=== PATIENT | male | born 1955 | race Caucasian/White ===

== ENCOUNTER → 2016-11-20 | Outpatient (CLI) | payer OTHER ==
[~2016-11-20] MED LIST: ANTI-DIARRHEAL2 M1 PO; ASPIRIN PO; ATENOLOL25 MG PO; BENADRYL25 M1 PO; CALCITRIOL0.25 MC1 PO; FOSRENOL500 MG PO; HYDROCODON-ACE1 EAC5 PO; ISOSORBIDE DINI30 MG PO; LIPITOR PO; LOVENOX30 MG/0.3 INJ; PERCOCET 7.5/321 TAB PO; RENVELA800 MG PO; SENSIPAR30 M1 PO
--- NOTE | ~2016-11-20 | CR63 ---
[facility] A Service of [facility] RADIOLOGY TEXT RESULTS PATIENT: AMY OLIVA LOCATION: [facility] : 55 UNIT #: [id number] AGE: [address]: Nate Mirza MD SEX: M ORDER DR: [id number] [facility] [place] [address] [place], [place] [address] [id number] O MR#: [id number] Acc #: [id number] NAME: AMY OLIVA : 1955 SEX: M STUDY DATE/TIME: 11/20/2016 9:01 UNIT: [facility] ROOM: STUDY DESCRIPTION: CR Chest 2 View Attending Physician: Nate Mirza M.D. Ordering Physician: Nate Mirza M.D. Primary Care Physician: Alek Wong MEDICAL IMAGING REPORT This report is preliminary unless electronic signature is present EXAM Chest 11/20/2016 HISTORY 61-year-old male preop clearance for right knee arthroscopy. Lateral meniscal tear. History of hypertension, thyroid disease, kidney dialysis. COMPARISON Chest 07/25/2005. FINDINGS PA and lateral chest views show normal cardiac size and configuration. Hilar structures and mediastinal contours are preserved. Calcification is noted in the aortic arch. Occasional granuloma also noted in the right hilum and right upper lobe. Bilateral nipple opacities visualized. Lungs are otherwise expanded and clear. Costophrenic angles are preserved. IMPRESSION Stable chest with no acute chest finding. Dictated by... Gilberto Jaimes M.D. THIS IS AN ELECTRONICALLY VERIFIED REPORT Gilberto Jaimes M.D. at 11/20/2016 10:43 AM SHUN/wai TD: 11/20/2016 09:49 JOB #: [id number] MEDICAL IMAGING REPORT Page 1 of 1 COPY
[2016-11-20 09:10] LABS: HEMATOCRIT 41.7 % (38.0-50.0); HEMOGLOBIN 13.4 gm/dL (13.0-16.0); MEAN CELL VOLUME 100.4 FL (83-96); MEAN CORPUSCULAR HEMOGLOBIN 32.2 PG (28-34); MEAN CORPUSCULAR HGB CONC 32.1 g/dL (30-36); MEAN PLATELET VOLUME 9.5 FL (6.5-11.5); RED BLOOD COUNT 4.15 X10e (3.90-5.60); RED CELL DISTRIBUTION WIDTH 15.7 % (11.0-15.5); WHITE BLOOD COUNT 8.7 X10e3 (4.0-10.5)
[2016-11-20 10:01] LABS: BUN/CREATININE RATIO 3.5; CALCIUM SERUM 8.7 mg/dL (8.4-10.2); CREATININE SERUM 17.7 mg/dL (0.6-1.4); GLOM FILT RATE Estimated 2.5 mL/min (>60); POTASSIUM 5.1 mmol/L (3.5-5.1)
== END | disposition home or self-care (01) ==
LOC: CAMB 07:05 → EDSTATUS 08:00
PROVIDERS: Orthopaedic Surgery
DX: Z01.818 Encounter for other preprocedural examination (principal); I10 Essential (primary) hypertension; E78.5 Hyperlipidemia, unspecified; E07.9 Disorder of thyroid, unspecified; Z99.2 Dependence on renal dialysis
CPT/HCPCS: 36415; 71020; 80048; 85027

== ENCOUNTER → 2016-12-01 | Day surgery (SDC) | payer OTHER ==
--- NOTE | ~2016-12-01 | EKG ---
PATIENT: AMY OLIVA UNIT #: [id number] Ventricular Rate: 56 BPM Atrial Rate: 56 BPM P-R Interval: 124 ms QRS Duration: 90 ms Q-T Interval: 444 ms QTC Calculation(Bezet): 428 ms P [place]: 67 degrees Calculated R [place]: 72 degrees Calculated T [place]: 68 degrees Diagnosis Line: Sinus bradycardia Diagnosis Line: Otherwise normal ECG Diagnosis Line: When compared with ECG of 10-JAN-2016 08:24, Diagnosis Line: Vent. rate has decreased BY 30 BPM Diagnosis Line: Confirmed by TATO MORGAN MD ([id number]) on Diagnosis Line: 12/01/2016 9:37:24 AM INTERPRETING MD: EDDIE ZAPATA
--- NOTE | ~2016-12-01 | OR ---
Unit #: [id number] #: [id number] Patient: AMY OLIVA [id number] [address] [address] [id number] O MR#: [id number] NAME: AMY OLIVA. ROOM: Date of Procedure: 12/01/2016 Admission Date: 12/01/2016 Surgeon: Nate Mirza M.D. : 1955 Attending Physician: Nate Mirza M.D. Primary Care Physician: Alek Wong OPERATIVE REPORT PREOPERATIVE DIAGNOSIS Lateral meniscal tear, right knee. POSTOPERATIVE DIAGNOSES Lateral meniscal tear, right knee with degenerative arthritis. PROCEDURE PERFORMED Arthroscopic partial lateral meniscectomy. ANESTHESIA General. ESTIMATED BLOOD LOSS Less than 25. DESCRIPTION OF PROCEDURE The patient was brought to the operating room, given a general anesthetic. Tourniquet placed around the right leg. Right leg was exsanguinated. Tourniquet inflated to 250, placed in a leg zayas, and prepped and draped. The arthroscope was introduced through the inferolateral portal. The knee was visualized. Suprapatellar pouch was free of debris. The medial compartment was entered. There was marked softening in the articular cartilage. The patient had the meniscus probed and it was found to the intact. The lateral compartment of the meniscus showed some degenerative tears. These were resected using the 3.5 incisor blade and straight basket. Once again, there was marked softening of the articular cartilage and in some areas almost full-thickness loss. We then removed all the fluid from the knee. The joint was injected with 15 mL of 0.5% plain Marcaine. Sterile dressing applied. Tourniquet released and general anesthetic reversed. Dictated by... Zainab Simmons/toro TD: 12/01/2016 11:55 JOB #: [id number] Unit #: [id number] #: [id number] Patient: AMY OLIVA OPERATIVE REPORT Page 1 of 1 X Nate Mirza MD X PROCEDURE OPERATIVE NOTE
== END | disposition home or self-care (01) ==
LOC: CSUR 05:44
DX: S83.281A Other tear of lateral meniscus, current injury, right knee, initial encounter (principal); M22.41 Chondromalacia patellae, right knee; I10 Essential (primary) hypertension; E78.5 Hyperlipidemia, unspecified; E03.9 Hypothyroidism, unspecified; N19 Unspecified kidney failure; Z87.01 Personal history of pneumonia (recurrent); Z88.6 Allergy status to analgesic agent; Z88.1 Allergy status to other antibiotic agents; Z91.041 Radiographic dye allergy status; Z99.2 Dependence on renal dialysis; Z79.82 Long term (current) use of aspirin; Z79.899 Other long term (current) drug therapy; Z98.41 Cataract extraction status, right eye; Z98.42 Cataract extraction status, left eye; Z96.1 Presence of intraocular lens; Z98.890 Other specified postprocedural states; X58.XXXA Exposure to other specified factors, initial encounter
CPT/HCPCS: 93005; J2250; J2405; J3010